=== PATIENT | female | born 1935 | race Caucasian/White ===

== ENCOUNTER 2020-11-10 13:52 | Emergency (ER) | payer MEDICARE ==
[~2020-11-10] VITALS: Ht 167.6 cm; Wt 64.0 kg
[2020-11-10 15:18] LABS: ABSOLUTE NEUTROPHILS 3.2 thou/uL (1.4-8.2); BASOPHILS 0.5 % (0.0-2.0); EOSINOPHILS 0.9 % (0.0-3.0); HEMATOCRIT 31.5 % (37.0-47.0); HEMOGLOBIN 10.4 gm/dL (12.0-15.0); LYMPHOCYTES 30.4 % (24.0-44.0); MCH 32.6 pg (26.0-34.0); MCHC 32.9 g/dL (28.0-37.0); MCV 99.3 fL (80.0-100.0); MONOCYTES 7.2 % (1.0-8.0); PLATELET COUNT 201 thou/uL (150-400); RBC 3.18 mil/uL (4.20-5.00); RDW 14.6 % (10.5-14.5); WBC 5.3 thou/uL (4.0-11.0)
[2020-11-10 15:27] LABS: CREATININE 0.8 mg/dL (0.6-1.0); POTASSIUM 4.4 mmol/L (3.5-5.1)
[2020-11-10 15:34] LABS: APTT 25.8 Seconds (24.5-32.8); PROTIME 10.1 Seconds (9.3-11.4)
[2020-11-10 15:37] LABS: ALBUMIN 2.9 g/dL (3.4-5.0); TOTAL BILIRUBIN 0.3 mg/dL (0.2-1.0); TOTAL PROTEIN 6.5 g/dL (6.4-8.2)
[2020-11-10] MEDS ORDERED: TRAMADOL 50 MG50 MG PO (16:23)
[2020-11-10 18:22] VITALS: BP 154/56
== END 2020-11-10 18:25 | disposition home or self-care (01) ==
LOC: ER 13:52
PROVIDERS: Emergency Medicine
DX: S70.11XA Contusion of right thigh, initial encounter (principal); M54.41 Lumbago with sciatica, right side; M25.551 Pain in right hip; Z88.0 Allergy status to penicillin; Z88.1 Allergy status to other antibiotic agents; Z88.2 Allergy status to sulfonamides; Z88.8 Allergy status to other drugs, medicaments and biological substances; X58.XXXA Exposure to other specified factors, initial encounter; Y93.89 Activity, other specified; Y92.89 Other specified places as the place of occurrence of the external cause; Y99.8 Other external cause status

== ENCOUNTER 2021-06-17 09:53 | Emergency (ER) | payer MEDICARE ==
[~2021-06-17] VITALS: Ht 167.6 cm; Wt 71.7 kg
[~2021-06-17 09:53] MED LIST: TRAMADOL 50 MG50 MG PO
[2021-06-17 11:18] LABS: ABSOLUTE NEUTROPHILS 3.9 thou/uL (1.4-8.2); BASOPHILS 0.6 % (0.0-2.0); EOSINOPHILS 0.7 % (0.0-3.0); HEMATOCRIT 30.4 % (37.0-47.0); HEMOGLOBIN 9.9 gm/dL (12.0-15.0); LYMPHOCYTES 20.9 % (24.0-44.0); MCH 30.7 pg (26.0-34.0); MCHC 32.5 g/dL (28.0-37.0); MCV 94.3 fL (80.0-100.0); MONOCYTES 8.1 % (1.0-8.0); PLATELET COUNT 248 thou/uL (150-400); POLYS 69.7 % (36.0-66.0); RBC 3.23 mil/uL (4.20-5.00); RDW 15.4 % (10.5-14.5); WBC 5.6 thou/uL (4.0-11.0)
[2021-06-17 11:34] LABS: ANION GAP 5 mmol/L (7-16); BUN 26 mg/dL (7-18); CALCIUM 8.9 mg/dL (8.5-10.1); CHLORIDE 101 mmol/L (98-107); CO2 35 mmol/L (21-32); CREATININE 0.7 mg/dL (0.6-1.0); GLUCOSE 91 mg/dL (74-106); SODIUM 141 mmol/L (136-145)
[2021-06-17 11:36] LABS: POTASSIUM 5.4 mmol/L (3.5-5.1)
[2021-06-17 11:50] LABS: DIRECT BILIRUBIN < 0.1 mg/dL (<0.1-0.2); SGOT 33 U/L (15-37); SGPT 17 U/L (14-59); TOTAL BILIRUBIN 0.4 mg/dL (0.2-1.0); TOTAL PROTEIN 7.1 g/dL (6.4-8.2)
[2021-06-17 14:27] VITALS: BP 144/51
--- NOTE | 2021-06-18 16:14 | EKG ---
[address] [address] ELECTROCARDIOGRAM REPORT Name: SHIMON KIRKLAND [facility] [id number] Admission: 06/17/21 Attend Phys: Discharge: 06/17/21 Date of : 35 Report #: [id number] [facility] ED Test Date: 2021-06-17 Test Time: 09:56:36 Pat Name: SHIMON KIRKLAND Department: Room: Gender: F Firing Pin Gauger: GREGORY : 1935 Requested By: Ashlee Almendarez Order Number: [id number] MD: Ricky Lucia Measurements Intervals [place] Rate: 76 P: 70 FL: 188 QRS: 38 QRSD: 87 T: 48 QT: 345 QTc: 388 Interpretive Statements Sinus rhythm Normal tracing No previous ECG available for comparison Electronically Signed On 06-18-2021 16:14:39 CDT by Ricky Lucia [email or web address] <ELECTRONICALLY SIGNED> By: Ricky Lucia MD, [facility] 06/18/21 [id number] Ricky Lucia MD, FACC /EPI
== END 2021-06-17 14:29 | disposition home or self-care (01) ==
LOC: ER 09:53
PROVIDERS: Emergency Medicine
DX: M25.512 Pain in left shoulder (principal); J44.9 Chronic obstructive pulmonary disease, unspecified; Z88.1 Allergy status to other antibiotic agents; Z88.0 Allergy status to penicillin; Z88.2 Allergy status to sulfonamides; Z88.8 Allergy status to other drugs, medicaments and biological substances